=== PATIENT | female | born 1990 | race African-American/Black ===

== ENCOUNTER 2019-10-05 22:15 | Outpatient (CLI) | payer OTHER ==
[2019-10-05] MEDS ORDERED: FLUCONAZOLE 50MG TABLET PO ONE (23:00)
--- NOTE | 2019-10-05 23:03 | IPNPDOC ---
Text Note Date of Service The patient was seen on 10/05/19. NOTE Patient is 32wks with c/o discharge. Whitish not clumpy x3day. Sore in vagina and introitus. Hasn't tried anything. No bleeding. No loss of fluid. No contractions. Good movement. Exam: Introitus and vagina with erythema. White clumpy discharge c/w yeast. Nitrazine negative. FHT: Category 1, 150s, reactive, no decels, no contractions. Given diflucan 150mg PO x1. Fetus reassuring. Discharge home. Patricia Curran MD Oct 05, 2019 23:03
[2019-10-05 23:10] VITALS: BP 132/77
== END 2019-10-05 23:37 | disposition home or self-care (01) ==
LOC: M LDO 22:15
PROVIDERS: ATTEND Obstetrics & Gynecology
DX: O26.893 Other specified pregnancy related conditions, third trimester (principal); N89.8 Other specified noninflammatory disorders of vagina; Z3A.32 32 weeks gestation of pregnancy
CPT/HCPCS: 59025; G0378; G0463

== ENCOUNTER → 2019-10-20 | Outpatient (CLI) | payer OTHER ==
--- NOTE | 2019-10-20 12:23 | REP ---
Obstetric sonography: Limited study. History: Abnormal NST evaluate well-being. Findings: Scanning through the gravid uterus demonstrates a single living intrauterine gestation in a cephalic lie. Placenta is anterior grade 1 without evidence of previa or abruption. Closed cervical length could not be measured due to head position. Amniotic fluid is subjectively low normal. SANCHEZ is similarly in the lower end of the normal range at 9.4 cm (8.1-24.8 centimeters). SD ratio in the umbilical cord artery by Doppler is somewhat elevated at 3.70 (2.00-3.00). Biophysical profile is six out of a possible eight with zero scored for tone. Electronically Signed by Humberto De La Cruz MD 10/20/2019 12:15 P
== END ==
LOC: M RAD 11:02
PROVIDERS: ATTEND Obstetrics & Gynecology
DX: O36.8331 Maternal care for abnormalities of the fetal heart rate or rhythm, third trimester, fetus 1 (principal); Z3A.34 34 weeks gestation of pregnancy

== ENCOUNTER → 2019-10-27 | Outpatient (CLI) | payer OTHER ==
--- NOTE | 2019-10-27 20:09 | REP ---
Clinical: well-being. History of gestational diabetes. Comparison: 10/20/2019 . Findings: Examination demonstrates a single live intrauterine in cephalic presentation. motion is identified by technologist. Placenta is noted anterior and grade I I without evidence for placenta previa or abruption. Amniotic fluid volume is normal. Nuchal cord cannot be excluded. Gestational age by LMP 35 weeks 1 day with ADI 11/30/2019 . Gestational age by current measurements 33 weeks 4 days with ADI 12/11/2019 . FHR equals 152 beats per minute. Estimated weight 2229 grams ( 22nd percentile). Biophysical profile score: 8/8 Amniotic fluid index: 9.8 cm (7.9 - 24.9) Umbilical cord SD ratio: 3.79 (2.00 - 3.00) Impression: 1. Single live intrauterine in cephalic presentation demonstrating appropriate estimated weight. 2. Biophysical profile score and amniotic fluid volume are normal. 3. Umbilical cord SD ratio mildly elevated. 4. Nuchal cord cannot be excluded. Electronically Signed by Wilder Stacy MD 10/27/2019 08:00 P
== END ==
LOC: M RAD 12:57
PROVIDERS: ATTEND Obstetrics & Gynecology
DX: O24.419 Gestational diabetes mellitus in pregnancy, unspecified control (principal)

== ENCOUNTER → 2019-11-03 | Outpatient (CLI) | payer OTHER ==
--- NOTE | 2019-11-03 13:37 | REP ---
OB ULTRASOUND: Real-time sonographic evaluation of the gravid uterus is performed. There is a single living intrauterine gestation. Estimated gestational age is 36 weeks 1 day, EDC 11/30/2019. Today's measurements indicate appropriate growth. BPD 88 mm = 35 weeks 4 days, 42nd percentile HC 311 mm = 34 weeks 6 days, 31st percentile AC 314 mm = 35 weeks 3 days, 39th percentile Femur length 71 mm = 36 weeks 2 days, 53rd percentile HC/AC ratio 0.99 within normal range of 0.92-1.11. Estimated weight 2712 grams at the 42nd percentile. Cervix is closed and measures 4.0 cm in length. heart rate 157 beats per minute. Amniotic fluid subjectively appears to be lower limits of normal to mildly decreased. SANCHEZ is 7.4, normal range is 7.7-24.9. Biophysical profile score 8/8. S/D ratio 4.95 is above the normal range of 1.96-2.96. RI 0.80 is above normal range of 0.59-0.75. Visualized anatomy today includes four chamber heart, stomach, kidneys, and bladder which are all grossly unremarkable. position is vertex. Placenta is anterior and grade 2 with no previa or abruption. Electronically Signed by Sarath Alba MD 11/03/2019 04:56 P
== END ==
LOC: M RAD 12:14
PROVIDERS: ATTEND Obstetrics & Gynecology
DX: O24.913 Unspecified diabetes mellitus in pregnancy, third trimester (principal); Z3A.36 36 weeks gestation of pregnancy

== ENCOUNTER → 2019-11-10 | Outpatient (CLI) | payer OTHER ==
--- NOTE | 2019-11-10 14:37 | REP ---
OB ULTRASOUND AND BIOPHYSICAL PROFILE: Real-time sonographic evaluation of the gravid uterus performed. There is a single living intrauterine gestation. The estimated gestational age is 37 weeks 1 day, EDC 11/30/2019. heart rate 153 beats per minute. Amniotic fluid is within normal limits. SANCHEZ 11.8, normal range 7.5 to 24.4. Biophysical profile score 8/8. S/D ratio 4.81, normal range 1.6 to 2.6. RI 0.79, normal range 0.59 to 0.75. position is vertex. Placenta anterior and grade 3 with no previa or abruption. Electronically Signed by Sarath Alba MD 11/10/2019 03:11 P
--- NOTE | 2019-11-10 17:27 | HPE ---
DATE OF ADMISSION: 11/23/2019 This patient is a 29-year-old 4, para 1. Last menstrual period (LMP) is 02/08/2019, estimated date of confinement (EDC) 11/30/2019, booked for elective repeat section on 11/23/2019. Her past history: In 2011 had a spontaneous . In 2012 at term had a section for distress, 10 pounds 5 ounces, macrosomic infant. In 2015, spontaneous at 8 weeks. Her risk factors are she had a previous section for macrosomic in 2012. She is a class B diabetic, on metformin 500 mg daily. She has a body mass index (BMI) of 38.7. She is presently on aspirin 81 mg per day. She is GBS positive. Her lab values are she is O by mouth, HIV negative, hepatitis negative, RPR negative, rubella immune, Varicella nonimmune. Pap normal. Urine negative. Gonorrhea and chlamydia are negative. One-hour glucose initially was 157. Her 3-hour glucose fasting was 117, 1-hour is 163, 2-hour is 176, and 3-hour is 141. She was placed on metformin 500 mg daily. On examination today, symphysis fundus height is 38 cm, vertex presenting. heart sounds are prominent and normal. Category 1 strip. Her blood pressure is 136/78, respirations are 18, temperature is 98.2. She weighs 250.8 pounds. The rest of the examination is unremarkable. She is normocephalic, atraumatic. Neck: Full range of motion. Pupils equal and reactive to light. Distal pulses symmetric. No evidence of deep vein thrombosis (DVT), pulmonary embolism (PE), or superficial phlebitis. Chest is clear bilaterally to bases. No wheezes or rhonchi. No costovertebral angle (CVA) tenderness. Abdomen is soft. Four-quadrant bowel sounds are noted. Symphysis fundus height is appropriate. Incisional site is not painful, no hernias, and is dry. She has no rashes, lesions, or pruritus. No arthralgia, myalgia. No complaint of joint pain. No complaint cough, wheezes, shortness of breath, or dyspnea on exertion. Not bleeding. Neurologic complete. No incontinency, urgency, or frequency. No nausea, vomiting, diarrhea, or constipation. She is a class B diabetic. No heat or cold insensitivity. She had no abnormal Pap smears. No sexually transmitted diseases (STDs). PAST MEDICAL HISTORY: Unremarkable. SURGICAL HISTORY: Noncontributory. FAMILY HISTORY: Noncontributory. She does not smoke, drink, or abuse drugs. 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 No domestic violence. Presently taking vitamins, metformin 500 daily, and ASA 81 mg. ALLERGIES: IODINE, shellfish, and wasp venom. We discussed the risks and benefits of repeat section, including hemorrhage, infection, perforation, , reoperation, remote possibility of blood transfusion, remote possibility of hysterectomy for life-threatening bleeding situations. The risk of admission to the intensive care unit (NICU) because of her diabetes may be relevant, or if there are lacerations the baby may be admitted to the NICU. The patient expressed understanding of the same. All questions are answered. A 30-minute discussion. Consent form was signed. We are now awaiting the preoperative procedures.
== END ==
LOC: M RAD 12:54
PROVIDERS: ATTEND Obstetrics & Gynecology
DX: O24.415 Gestational diabetes mellitus in pregnancy, controlled by oral hypoglycemic drugs (principal); Z3A.34 34 weeks gestation of pregnancy

== ENCOUNTER 2019-11-14 10:44 | Inpatient (IN) | payer OTHER ==
[2019-11-14] VITALS (23 sets, daily range): BP systolic 89–168; BP diastolic 52–100
[~2019-11-14] VITALS: Ht 165.1 cm; Wt 113.0 kg
[2019-11-14] MEDS ORDERED: LR 1,000 ML IV SCH (11:00)
[2019-11-14] MEDS ORDERED: PENICILLIN G POTASSIUM IV 5 MU in D5W MINI-BAG PLUS 100 ML IV STA (11:02)
[2019-11-14] MEDS ORDERED: LACTATED RINGER'S 1000 ML IV STA (11:02)
--- NOTE | 2019-11-14 11:30 | HPEPDOC ---
Obstetrical History & Physical General Date of Admission Nov 14, 2019 at 10:58 History of Present Illness Cinthya is a 29yo with SIUP at 37w5d by lmp c/w 9wk u/s presenting to L&D with regular painful ctx since around 0100. No loss of fluid or vaginal bleeding. Has felt movement. No f/c/n/v/CP/SOB. Chief Complaint: Contractions, term Information Provided By: Patient Care Care: Good Care Dating Final EDC: Nov 30, 2019 Final EDC by: LMP, 1st trimester (US) Antepartum Course Diagnos(e)s Obesity (starting BMI 38.7), Class B diabetes on metformin prior to and continued during , prior section 07/2013 for arrest of dilation ( weight [id number]) at [facility] with 2 layer closure, varicella non- immune Height (inches): 66 Pre- weight (lbs.): 240 Admission Weight (lbs.): 250.8 Change in Weight (lbs.): 10.8 Past Medical History Past Obstetrical History : Past Obstetrical History: Multigravida (2012 PLTCS at 39wk for arrest of dilation ([id number]), 2011 sab, 2016 ETOP) 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 ABDOMEN: Gravid and non-tender to touch. FETUS: Is vertex (VTX) by sterile vaginal examination (SVE) EXTREMITIES: No edema of BLE Pertinent Laboratoy Data Blood Type: O+ RBC Antibody Screen: Negative HIV: Negative Hepatitis B: Negative Hepatitis C: Unknown Rapid Plasma Reagin: Nonreactive Rubella: Immune Varicella: Nonreactive Chlamydia/Gonorrhea: Negative Group B Streptococcus: Positive Glucose Tolerance Test: 157 (117/163/176/141) Anatomy Ultrasound Ultrasound Date: Jul 19, 2019 Placenta Location: Anterior Normal Anatomy: Yes Placenta Previa: No Other Ultrasounds 03 November 2019: growth scan 42%ile 2712g, vertex, BPP 8/8, SANCHEZ 7.4cm, placenta anterior grade 2 no previa Steroid Therapy Steroid Therapy: No Vaginal Examination Dilation: 6 cm Effacement: 80% Station: -2 Cervical Consistency: Soft Cervical Position: Middle Presentation: Cephalic presentation Assessment Heart Rate (FHR): 150 Variability: Moderate Accelerations: Positive Decelerations: Variable (non-repetitive, occasional) Tocometer Contractions: Yes Frequency: regular, every 2-5 min. Duration: greater than 60 seconds Strength: palpated as strong Assessment/Plan Assessment Cinthya is a 29yo with SIUP at 37w5d by lmp c/w 9wk u/s presenting in active labor with SCE 6/80/-2, intact. Ctx q3min. Cat II FHRT with mod james, +accels, occasional quick non-repetitive variable decels. Cephalic by SCE. Vitals wnl, benign exam. PMhx and PNC significant for: Obesity (starting BMI 38.7), Class B diabetes on metformin prior to and continued during with good control of glucose, history of PLTCS 07/2013 for arrest of dilation (infant weighed [id number]) at [facility] with 2 layer closure, varicella non-immune Plan Admit and orient. Counseled and consented- patient was scheduled for RLTCS on 22 November. Given that she is in active labor with SCE 6/80/-2, I discussed the option for her of repeat section or trial of labor after section. Discussed 1% risk of uterine rupture if she chooses TOLAC. At this point, she is amenable to TOLAC and would like to try since she has progressed so well in labor. She would like an epidural. Diet: NPO Group B Streptococcus (GBS) positive: PCN per protocol Labs and intravenous (IV) per unit protocol. Lactated Ringers (LR): Bolus 500 mL, then at 125 mL/hr. Anesthesia will be notified of TOLAC status and desire for epidural Safe to proceed MD Doug Salomon Katrina D MD Nov 14, 2019 11:30
[2019-11-14 11:32] LABS: BASO % 0.4 % (0.0-1.0); EOS # 0.1 10^3/uL (0.0-0.5); EOS % 0.9 % (0.0-3.0); HEMATOCRIT 37.7 % (36.0-47.0); HEMOGLOBIN 12.4 g/dl (12.0-15.5); LYMPH % 30.8 % (24.0-44.0); MEAN CORPUSCULAR HEMOGLOBIN 25.5 pg (27.0-33.0); MEAN CORPUSCULAR HGB CONC 32.9 g/dl (32.0-36.5); MEAN CORPUSCULAR VOLUME 77.6 fl (80.0-96.0); MONO # 0.8 10^3/uL (0.0-0.8); MONO % 7.7 % (0.0-5.0); NEUTROPHILS # 5.6 10^3/uL (1.5-8.5); NEUTROPHILS % 58.1 % (36.0-66.0); PLATELET COUNT, AUTOMATED 227 10^3/uL (150-450); RED BLOOD COUNT 4.86 10^6/uL (4.00-5.40); WHITE BLOOD COUNT 9.7 10^3/uL (4.0-10.0)
[2019-11-14] MEDS ORDERED: FLINCHW2 PO (11:32)
[2019-11-14] MEDS ORDERED: METF500T13 PO (11:32)
[2019-11-14] MEDS ORDERED: FENTANYL 2MCG/ML ROPIVACAINE 0.2% IN 0.9% NACL 100ML IVBAG As Ordered ONE (11:53)
[2019-11-14] MEDS ORDERED: ePHEDrine SULFATE 25 MG/5 ML(5MG/ML) SYRINGE As Ordered ONE (13:14)
[2019-11-14] MEDS ORDERED: ceFAZolin 2 GM/D5W 50 ML IV BAG (J0690 PER 500MG) As Ordered ONE (13:57)
[2019-11-14] MEDS ORDERED: AZITHROMYCIN INJ 500MG VIAL (J0456) As Ordered ONE (13:58)
[2019-11-14] MEDS ORDERED: LACTATED RINGER'S 1000 ML IV PRN (14:00)
[2019-11-14] MEDS ORDERED: FENTANYL/ROPIVACAINE/NACL BAG 100 ML EPIDURAL SCH (14:00)
[2019-11-14] MEDS ORDERED: EPIDURAL COMMENT XX SCH (14:00)
[2019-11-14] MEDS ORDERED: ceFAZolin SOD 2 GM in IV 1 EA IV ONE (14:00)
[2019-11-14] MEDS ORDERED: diphenhydrAMINE 50MG/ML VIAL (J1200) IV PRN ×2 (14:00→15:21)
[2019-11-14] MEDS ORDERED: REFRIGERATOR IV KEYS XX PRN (14:00)
[2019-11-14] MEDS ORDERED: EPIDURAL/PCA KEYS XX PRN (14:00)
[2019-11-14] MEDS ORDERED: ePHEDrine SULFATE 25 MG/5 ML(5MG/ML) SYRINGE IV PRN (14:00)
[2019-11-14] MEDS ORDERED: AZITHROMYCIN INJ 500 MG, VIAL MATE ADAPTER 1 EACH in D5W 250 ML IV ONE (14:00)
[2019-11-14] MEDS ORDERED: BICITRA 30ML SOLN UDC PO ONE (14:00)
[2019-11-14] MEDS ORDERED: ONDANSETRON 4MG/2ML VIAL (J2405) IV PRN ×2 (14:00→16:00)
[2019-11-14] MEDS ORDERED: NALOXONE INJ 0.4 MG/1 ML VIAL (J2310) IV PRN ×3 (14:00→15:21)
[2019-11-14] MEDS ORDERED: BICITRA 30ML SOLN UDC As Ordered ONE (14:03)
--- NOTE | 2019-11-14 14:10 | IPNPDOC ---
Text Note Date of Service The patient was seen on 11/14/19. NOTE Intrapartum Note, decision for Patient received epidural and started having deep/recurrent decels- bp was initially low, so she was given a dose of ephedrine, started on O2, fluid bolus 500cc LR and position change onto her side with improvement but not full resolution. I placed FSE after AROM, clear fluid noted, and continued to watch the tracing closely. After assessing that the decels were not fully resolving, and after repeat SCE showed continued 7/80/-2, I counseled Cinthya regarding persistent decels that my recommendation is for RLTCS. She is amenable. Epidural is working well. Consent forms signed for RLTCS and blood transfusion after fully discussing all r/b/a. All questions answered. Will give bicitra 2g IV anceph 500mg IV azithromycin NICU Dr and nursing team and anesthesia all aware Will proceed to OR as soon as possible Dr. Mary Camacho MD VS,Arvin, I+O VSArvin, I+O Laboratory Tests 11/14/19 11:21 Mary Camacho MD Nov 14, 2019 14:10
[2019-11-14] MEDS ORDERED: OXYTOCIN INJ 10 UNITS/ML VIAL (J2590) As Ordered ONE ×2 (14:37→15:08)
[2019-11-14] MEDS ORDERED: PHENYLephrine HCL 500 MCG/5 ML (100MCG/ML) SYRINGE (J2370) As Ordered ONE (14:37)
[2019-11-14] MEDS ORDERED: LIDOCAINE 2% W/EPIN INJ 20ML **PRES FREE As Ordered ONE (14:37)
[2019-11-14] MEDS ORDERED: dexameTHASONE 4 MG/ML 1ML VIAL (J1100 PER 1MG) As Ordered ONE (14:37)
[2019-11-14] MEDS ORDERED: ONDANSETRON 4MG/2ML VIAL (J2405) As Ordered ONE (14:37)
[2019-11-14 14:38] LABS: CORD GAS ABE A -12.4; CORD GAS HCO3 A 18.4 MEQ/L; CORD GAS O2 SAT A 19.3 %; CORD GAS PCO2 A 62.8 mmHg; CORD GAS PH A 7.085 UNITS; CORD GAS PO2 A 17.9 mmHg; CORD GAS SBC A 13.4 MEQ/L; CORD GAS TCO2 A 20.3 MEQ/L
[2019-11-14 14:39] LABS: CORD GAS HCO3 V 16.3 MEQ/L; CORD GAS PCO2 V 41.2 mmHg; CORD GAS PH V 7.214 UNITS; CORD GAS PO2 V 47.9 mmHg; CORD GAS SBC V 15.7 MEQ/L; CORD GAS TCO2 V 17.5 MEQ/L
[2019-11-14] MEDS ORDERED: MORPHINE PRES-FREE INJ 10 MG/10 ML VIAL (J2274) As Ordered ONE (14:53)
[2019-11-14] MEDS ORDERED: KETOROLAC 60 MG/2 ML VIAL (J1885) As Ordered ONE (14:55)
[2019-11-14] MEDS ORDERED: PENICILLIN G POTASSIUM IV 2.5 MU in IV 1 EA IV SCH (15:00)
[2019-11-14] MEDS ORDERED: NALBUPHINE HCL 10 MG/ML AMP (J2300) IV PRN (15:21)
[2019-11-14] MEDS ORDERED: OXYTOCIN 30 UNITS IN 0.9% NaCl 500ML IV BAG (J2590) As Ordered ONE (15:28)
--- NOTE | 2019-11-14 15:35 | DNPDOC ---
[facility] Delivery Note Delivery Note DATE OF DELIVERY: 11/14/2019 PREDELIVERY DIAGNOSIS: 37w5d gestation and labor, history of prior section POST DELIVERY DIAGNOSIS: 37w5d gestation and labor, history of prior section NRFHT when attempting TOLAC PROCEDURE: RLTCS FLUTE TEACHER: Dr. Mary Camacho MD Assist: Dr. Patricia Curran MD ANESTHESIA: epidural ESTIMATED BLOOD LOSS: 600 mL. FINDINGS: 6 pound 1 ounce (2760g) male infant, Score 8/9 DELIVERY SUMMARY: Cinthya is a 29yo [id number] s/p uncomplicated RLTCS at 14:26 on 11/14/2019 when she presented to L&D in active labor at 37w5d and developed a NRFHT with recurrent late/variable decels when attempting TOLAC. See dictated op report for further details. MD Doug Salomon Katrina D MD Nov 14, 2019 15:35
[2019-11-14] MEDS: LR 1,000 ML IV SCH ×2 (15:36→23:39)
[2019-11-14] MEDS ORDERED: OXYTOCIN DRIP 30 UNITS in IV 1 EA IV SCH (15:36)
[2019-11-14] MEDS ORDERED: RHOGAM 300 MCG (1500 IU) INJ (J2790) IM SCH (15:45)
[2019-11-14] MEDS ORDERED: MEASLES,MUMPS,RUBELLA VACCINE INJ (MMR-II) (90707) SC SCH (15:45)
[2019-11-14] MEDS ORDERED: PERCOCET 5MG/325MG TAB PO PRN (15:45)
[2019-11-14] MEDS ORDERED: fentaNYL 100 MCG/2 ML INJECTION (J3010) As Ordered ONE (15:51)
[2019-11-14] MEDS: fentaNYL 100 MCG/2 ML INJECTION (J3010) IV PRN ×2 (15:55→16:11)
[2019-11-14] MEDS: METOCLOPRAMIDE INJ 10MG/2ML VIAL (J2765) IV PRN (19:32)
--- NOTE | 2019-11-14 19:33 | RO ---
DATE OF PROCEDURE: 11/14/2019 SURGEON: Mary Camacho SILK SCREEN PROCESSOR: Dr. Patricia Curran CLINICAL SERVICE: Obstetrics INDICATIONS FOR OPERATION: Cinthya is a 29-year-old 4, now para 2-0-2-2 who presented to labor and delivery at 37 weeks 5 days in active labor with cervical assessment 6, 80, -2. She has a history of a prior section that was performed in 2012 for a nonreassuring heart rate tracing that developed in the setting of likely arrest of dilation. That the infant weighed 10 pounds 5 ounces. She had been counseled previously regarding her options of repeat low transverse section versus a trial of labor after , and she had a planned repeat low transverse section scheduled for the with Dr. Stafford. When she presented in active labor, given her advanced dilation, I offered her the option of either having a section or a trial of labor, and she elected for a trial of labor. She received an epidural and immediately after started to have some deep recurrent heart rate decelerations. Resuscitative measures were employed. She did have some low blood pressure, which was corrected with ephrine, but she continued to have recurrent heart rate decelerations, so I counseled her for my recommendation of repeat low transverse section, which she was amendable to at that point. PREOPERATIVE DIAGNOSES: 1. Kohli intrauterine at 37 weeks 5 day in active labor. 2. History of prior section. 3. Class B diabetes. POSTOPERATIVE DIAGNOSES: 1. Kohli intrauterine at 37 weeks 5 day in active labor. 2. History of prior section. 3. Class B diabetes. 4. In addition, nonreassuring heart rate tracing during a trial of labor, necessitating section for delivery. MATERIAL FORWARDED TO THE LAB FOR EXAMINATION: Cord gases, pH arterial 7.085, base excess negative 12.4, pH venous 7.214, base excess negative 11. DESCRIPTION OF FINDINGS: Male in occiput transverse (OT) position. scores 8 and 9. Weight 2760 grams or 6 pounds 1 ounce. Normal appearing uterus, fallopian tubes and appendix. The uterus was repaired in situ. She had dense scarring in the subcutaneous layers from prior section. INFECTION CLASSIFICATION: II. ESTIMATED BLOOD LOSS: 600 mL. URINE OUTPUT: 100 mL of clear yellow urine. FLUIDS: 2 liters of lactated Ringer's. OPERATION PERFORMED: Repeat low transverse section. DESCRIPTION OF PROCEDURE: The patient was taken to the operating room. She had already received epidural anesthesia and a Espino catheter and bilateral sequential compression devices were in place. She was prepped and draped in a normal sterile fashion in the dorsal supine position with a left lateral tilt. She has an ALLERGY TO BETADINE, so Chloraprep was used. Time-out was performed to confirm patient name, date of , procedure and indication. Surgical team, nursing staff and anesthesia team were all in agreement, and epidural anesthesia was found to be adequate using an Allis clamp. She was given 2 grams of IV Ancef prophylactically as well as 500 mg of IV azithromycin for preoperative prophylaxis. She had also been receiving penicillin in labor for GBS positive status. A Pfannenstiel skin incision was made with a scalpel through the prior scar line and carried through to the underlying layer of fascia. Fascia was incised in the midline, and the incision was extended laterally with Morales scissors. Superior and inferior aspects of the fascial incision were grasped with Mert clamps, elevated and the underlying rectus muscles were dissected off bluntly and sharply. Peritoneum was entered digitally and the rectus muscles were in the midline. Peritoneal incision was extended superiorly and inferiorly with good visualization of the bladder. Bladder blade was inserted and the vesicouterine peritoneum was identified, grasped with pickups and entered sharply with Metzenbaum scissors. Incision was extended laterally and a bladder flap was created digitally. Bladder blade was reinserted and the lower uterine segment was scored in a transverse fashion with a scalpel. Uterus was entered bluntly, and the incision was extended with traction with clear amniotic fluid noted. Bladder blade was removed, and the 's head was elevated to the level of the incision. Fundal pressure was applied. The head was delivered atraumatically in the occupational therapy (OT) position. Anterior shoulder, posterior shoulder and corpus were delivered without difficulty. Nose and mouth were suctioned with bulb suction. Cord was clamped times two and cut. The infant was handed off to the awaiting pediatric team. Cord gases were obtained and as noted above. Placenta was removed manually, and the uterus was left in place to be repaired in situ. It was cleared of all clot and debris. The uterine incision was repaired with #0 Vicryl suture in a running locking fashion. A second layer of #0 Monocryl was used to close the hysterotomy incision in imbricating fashion. Uterine incision was inspected and hemostasis was noted. Gutters were cleared of all clot and irrigated with hemostasis noted. Peritoneum was closed using #3-0 Vicryl suture in a running fashion. Rectus muscles were reapproximated with [id number] stitches using #3-0 Vicryl suture. Fascia was reapproximated with #0 Vicryl suture in a running fashion. Subcutaneous tissue was copiously irrigated. Yahaira fascia was reapproximated using #3-0 Vicryl suture in a running fashion, and the skin was closed using a running subcuticular stitch with #4-0 Monocryl suture. The incision was cleaned with a wet lap, dried with a dry lap. Steri-Strips were applied in the usual fashion. Two strips of Telfa were layered on top of the Steri-Strips followed by a dry sterile towel. The surgical drapes were removed. Sterile towel was removed. Pressure dressing was applied over the entire surgical incision. The vagina was cleared of all blood clot without active bleeding noted. Fundus was firm at the umbilicus. All counts were correct times two. The procedure was without complications, and the patient tolerated the procedure well. She was taken to the recovery room on labor and delivery in stable condition.
[2019-11-14] MEDS: DOCUSATE SODIUM 100 MG CAP PO SCH (20:38)
[2019-11-14] MEDS: KETOROLAC 30 MG/ML VIAL (J1885) IV SCH (20:55)
[2019-11-15] MEDS: ONDANSETRON 4MG/2ML VIAL (J2405) IV PRN ×2 (00:54→08:45)
[2019-11-15 02:00] VITALS: BP 122/66
[2019-11-15] MEDS: KETOROLAC 30 MG/ML VIAL (J1885) IV SCH ×2 (03:46→08:45)
[2019-11-15] MEDS: METOCLOPRAMIDE INJ 10MG/2ML VIAL (J2765) IV PRN (03:46)
[2019-11-15] MEDS: LR 1,000 ML IV SCH (05:47)
[2019-11-15 06:00] VITALS: BP 123/63
[2019-11-15 06:51] LABS: HEMATOCRIT 30.6 % (36.0-47.0); MEAN CORPUSCULAR HGB CONC 32.7 g/dl (32.0-36.5); MEAN CORPUSCULAR VOLUME 79.5 fl (80.0-96.0); PLATELET COUNT, AUTOMATED 194 10^3/uL (150-450); RED BLOOD COUNT 3.85 10^6/uL (4.00-5.40); WHITE BLOOD COUNT 22.4 10^3/uL (4.0-10.0)
[2019-11-15] MEDS: DOCUSATE SODIUM 100 MG CAP PO SCH ×2 (08:44→21:40)
[2019-11-15] MEDS: PRENATAL VITAMINS CHEWABLE TABLET PO SCH (08:44)
--- NOTE | 2019-11-15 09:54 | IPNPDOC ---
Progress Note Date of Service: Nov 15, 2019 Day#: 1 Progress Note PPD/POD 1 SUBJECT: Cinthya is a 29yo [id number] s/p uncomplicated RLTCS at 14:26 on 11/14/2019 when she presented to L&D in active labor at 37w5d and developed a NRFHT with recurrent late/variable decels when attempting TOLAC, doing well /post-op day #1. She has been ambulating, has albarran in place draining clear yellow urine. Tolerated breakfast well though had vomiting last night treated with zofran. Breast feeding without issue, but baby is in NICU for glucose. Reports lochia is modest. No f/c/n/v/CP/SOB. Pain well controlled with toradol/percocet. OBJECTIVE: VITAL SIGNS: Within normal limits, afebrile. Alert and oriented times three. Abdomen: Fundus firm at U-2. Soft, appropriately tender to palpation. Dressing over pfannensteil incision is clean/dry/intact Extremities: SCDs on and functioning, no pain with palpation of calves ASSESSMENT: Cinthya is a 29yo [id number] s/p uncomplicated RLTCS at 14:26 on 11/14/2019 when she presented to L&D in active labor at 37w5d and developed a NRFHT with recurrent late/variable decels when attempting TOLAC, doing well /post-op day #1. Vitals within normal limits, afebrile, hemodynamically stable with no evidence of infection. PLAN: 1. Routine /post-op care 2. Toradol and percocet then Motrin and percocet for pain. 3. Encourage breast feeding and ambulation to NICU 4. Regular diet 5. Remove albarran this morning with 4 hour due to void 6. Ok to remove outer bandage and shower this afternoon, keep steri strips in place to remove in 1 week 7. Possible discharge home tomorrow if meeting all milestones, patient knows to go to [facility] on the way home to hop picker post-op meds Dr. Mary Camacho MD VS, I&O, 24H, Fishbone Vital Signs/I&O Vital Signs Date Time Temp Pulse Resp B/P (MAP) Pulse Ox O2 Delivery O2 Flow Rate FiO2 11/15/19 06:00 98.2 84 20 123/63 (83) 97 Room Air I&O- Last 24 Hours up to 6 AM 11/15/19 05:59 Intake Total 3927 ml Output Total 2550 ml Balance 1377 ml Laboratory Data 24H LABS Laboratory Tests 2 11/14/19 11:21: Immature Granulocyte % (Auto) 2.1, Neutrophils (%) (Auto) 58.1, Lymphocytes (%) (Auto) 30.8, Monocytes (%) (Auto) 7.7H, Eosinophils (%) (Auto) 0.9, Basophils (%) (Auto) 0.4, Neutrophils # (Auto) 5.6, Lymphocytes # (Auto) 3.0, Monocytes # (Auto) 0.8, Eosinophils # (Auto) 0.1, Basophils # (Auto) 0.0, Nucleated Red Blood Cells % (auto) 0.0, Syphilis Serology NONREACTIVE 11/14/19 11:41: Serology Scanned Report Hepatitis B Testing 11/14/19 14:32: Cord Arterial Blood pH 7.085, Cord Arterial Blood PCO2 62.8, Cord Arterial Blood PO2 17.9, Cord Arterial Blood HCO3 18.4, Cord Arterial Blood Total CO2 20.3, Cord Arterial Blood Base Excess -12.4, Cord Arterial Base Excess (Standard 13.4, Cord Arterial Bld Oxygen Saturation 19.3, Cord Venous Blood pH 7.214, Cord Venous Blood PCO2 41.2, Cord Venous Blood PO2 47.9, Cord Venous Blood HCO3 16.3, Cord Venous Blood Total CO2 17.5, Cord Venous Base Excess (Actual) -11.0, Cord Venous Base Excess (Standard) 15.7, Cord Venous Blood Oxygen Saturation 84.0 11/15/19 06:32: Nucleated Red Blood Cells % (auto) 0.0 CBC/BMP Laboratory Tests 11/14/19 11:21 11/15/19 06:32 Mary Camacho MD Nov 15, 2019 09:54
[2019-11-15 10:00] VITALS: BP 130/63
--- NOTE | 2019-11-15 11:44 | IPN ---
DATE: 11/15/2019 This patient and her requested circumcision of their male . After discussing risks and benefits of circumcision, the medical and nonmedical indications, penile block, aftercare and bleeding, signed the consent form. All questions were answered. 20-minute discussion. We await the clearance by the bouffant curtain machine tender.
[2019-11-15] MEDS ORDERED: IBUP80TA PO (12:23)
[2019-11-15] MEDS ORDERED: PERCOCET PO (12:23)
[2019-11-15] MEDS ORDERED: DOCU100C16 PO (12:23)
[2019-11-15] MEDS: PERCOCET 5MG/325MG TAB PO PRN ×2 (15:06→22:21)
[2019-11-15 18:00] VITALS: BP 136/58
[2019-11-15] MEDS: IBUPROFEN 800 MG TAB PO SCH (18:10)
[2019-11-15 22:00] VITALS: BP 119/67
[2019-11-16] MEDS: IBUPROFEN 800 MG TAB PO SCH ×3 (01:34→16:53)
[2019-11-16 02:00] VITALS: BP 119/61
[2019-11-16 06:00] VITALS: BP 133/74
[2019-11-16] MEDS ORDERED: ONDANSETRON 4 MG ORAL DISINTEGRATING TAB (Q0162 PER 1MG) PO PRN (07:45)
--- NOTE | 2019-11-16 07:45 | IPNPDOC ---
Progress Note Date of Service: Nov 16, 2019 Day#: 2 Progress Note SUBJECT: Patient is a 29-year-old 2 now Para 2 status post uncomplicated Repeat delivery after failed TOLAC, doing well day # 2. She has been ambulating, voiding spontaneously without issue and tolerating regular diet. However, she has bouts of nausea and vomitting at night which then create significant muscular abdominal pain. Pumping without issue. Reports lochia is like a normal period. Patient is ambulating well. Reports some cramping with pumping. Has some pain in addition to the above. OBJECTIVE: VITAL SIGNS: Within normal limits, afebrile. GENERAL: No acute distress HEENT: Mucous membranes are moist BREAST: Nontender, no erythema CARDIOVASCULAR: RRR RESPIRATORY: Bilaterally clear ABDOMINAL EXAMINATION: Soft, appropriate tenderness, nondistended, fundus -2 WOUND: clean and dry and intact PERINEUM: Intact, minimal lochia EXTREMITIES: no edema, nontender ASSESSMENT: Patient is a 29-year-old 2 now Para 2 status post uncomplicated Repeat delivery after failed TOLAC, doing well day # 2. Vitals within normal limits, afebrile, hemodynamically stable with no evidence of infection. PLAN: 1. Continue care. 2. Tylenol and Percocet for pain. 3. Encourage continued pumping and ambulation. 4. Reglan OTC and Zofran PRN for N/V. VS, I&O, 24H, Fishbone Vital Signs/I&O Vital Signs Date Time Temp Pulse Resp B/P (MAP) Pulse Ox O2 Delivery O2 Flow Rate FiO2 11/15/19 10:00 98.6 82 18 130/63 (85) 98 Room Air I&O- Last 24 Hours up to 6 AM0 11/15/19 05:59 Intake Total 3927 ml Output Total 2550 ml Balance 1377 ml Laboratory Data 24H LABS Laboratory Tests 2 11/14/19 14:32: Cord Arterial Blood pH 7.085, Cord Arterial Blood PCO2 62.8, Cord Arterial Blood PO2 17.9, Cord Arterial Blood HCO3 18.4, Cord Arterial Blood Total CO2 20.3, Cord Arterial Blood Base Excess -12.4, Cord Arterial Base Excess (Standard 13.4, Cord Arterial Bld Oxygen Saturation 19.3, Cord Venous Blood pH 7.214, Cord Venous Blood PCO2 41.2, Cord Venous Blood PO2 47.9, Cord Venous Blood HCO3 16.3, Cord Venous Blood Total CO2 17.5, Cord Venous Base Excess (Actual) -11.0, Cord Venous Base Excess (Standard) 15.7, Cord Venous Blood Oxygen Saturation 84.0 11/15/19 06:32: Nucleated Red Blood Cells % (auto) 0.0 CBC/BMP Laboratory Tests 11/15/19 06:32 Patricia Curran MD Nov 15, 2019 12:18
[2019-11-16] MEDS: DOCUSATE SODIUM 100 MG CAP PO SCH ×2 (09:17→21:11)
[2019-11-16] MEDS: PRENATAL VITAMINS CHEWABLE TABLET PO SCH (09:17)
[2019-11-16] MEDS: METOCLOPRAMIDE 10 MG TAB PO SCH ×3 (09:17→18:00)
[2019-11-16] MEDS: PERCOCET 5MG/325MG TAB PO PRN ×2 (14:42→21:11)
[2019-11-16 18:00] VITALS: BP 129/61
[2019-11-16] MEDS ORDERED: SIMETHICONE 80 MG CHEW TAB PO PRN (21:30)
[2019-11-17] MEDS: IBUPROFEN 800 MG TAB PO SCH ×2 (00:04→08:40)
[2019-11-17] MEDS: METOCLOPRAMIDE 10 MG TAB PO SCH ×2 (00:04→05:39)
[2019-11-17 05:30] VITALS: BP_SYST 114; BP_SYST 136; BP_DIAS 62; BP_DIAS 69
[2019-11-17] MEDS: PERCOCET 5MG/325MG TAB PO PRN ×2 (05:40→12:17)
[2019-11-17] MEDS: PRENATAL VITAMINS CHEWABLE TABLET PO SCH (08:39)
[2019-11-17] MEDS: DOCUSATE SODIUM 100 MG CAP PO SCH (08:39)
--- NOTE | 2019-11-17 08:46 | IPNPDOC ---
Progress Note Date of Service: Nov 17, 2019 Day#: 3 Progress Note Subject: Patient is a 29-year-old 2 now Para 2 status post uncomplicated Repeat delivery after failed TOLAC #3. She has been ambulating, voiding spontaneously without issue and tolerating regular diet. Having regular BM. Pumping without issue. Reports lochia is like a normal period. Reports having difficulty walking at times with incisional pain. OBJECTIVE: VITAL SIGNS: Within normal limits, afebrile. GENERAL: No acute distress ABDOMINAL EXAMINATION: Soft, appropriate tenderness, nondistended, fundus -2 WOUND: clean and dry and intact EXTREMITIES: no edema, nontender, no erythema A/P patient is a 29 yo pod #3, clinically doing well. discussed s/s to call or go to ED as appropriate. encourage BF/breast pump. d/c home today. DO Madhuri VS, I&O, 24H, Fishbone Vital Signs/I&O Vital Signs Date Time Temp Pulse Resp B/P (MAP) Pulse Ox O2 Delivery O2 Flow Rate FiO2 11/17/19 06:10 16 11/17/19 05:30 98.0 89 136/69 (91) 100 Room Air JULIANA RICO DO Nov 17, 2019 08:46
--- NOTE | 2019-11-17 08:50 | DS.PDOC ---
Discharge Summary General Date of Admission Nov 14, 2019 at 10:58 Date of Discharge 11/17/2019 Discharge Summary PROCEDURES PERFORMED DURING STAY: RLTCS. ADMITTING DIAGNOSES: 1. Term 2. Active Labor 3. History of prior section 4. NRFHT DISCHARGE DIAGNOSES: 1. Post 2. 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 HISTORY OF PRESENT ILLNESS: see H&P HOSPITAL COURSE: Patient was admitted for active labor and had an uncomplicated section for failed TOLAC due to NRFHT. Bleeding similar to menses. Tolerating diet. Passing flatus. Able to ambulate. Pain tolerable with pain medications. Urinating without difficulty. DISCHARGE MEDICATIONS: Please see below. ALLERGIES: Please see below. PHYSICAL EXAMINATION ON DISCHARGE: VITAL SIGNS: Please see below. GENERAL: No acute distress HEENT: Mucous membranes moist ABDOMINAL EXAMINATION: Soft, appropriate tenderness, nondistended, fundus -2 WOUND clean and intact EXTREMITIES: no edema, nontender, no erythema LABORATORY DATA: Please see below. PROGNOSIS: Good ACTIVITY: Pelvic rest, no heavy lifting for 4-6wks. DIET: Regular DISCHARGE PLAN: Home DISPOSITION: Good. DISCHARGE INSTRUCTIONS: 1. See attached. ITEMS TO FOLLOWUP ON ON OUTPATIENT: 1. 2wks with [facility]. DISCHARGE CONDITION: Stable. TIME SPENT ON DISCHARGE: Greater than 20 minutes. Vital Signs/I&Os Vital Signs Date Time Temp Pulse Resp B/P (MAP) Pulse Ox O2 Delivery O2 Flow Rate FiO2 11/15/19 10:00 98.6 82 18 130/63 (85) 98 Room Air I&O- Last 24 Hours up to 6 AM 11/15/19 05:59 Intake Total 3927 ml Output Total 2550 ml Balance 1377 ml Laboratory Data Labs 24H Laboratory Tests 2 11/14/19 14:32: Cord Arterial Blood pH 7.085, Cord Arterial Blood PCO2 62.8, Cord Arterial Blood PO2 17.9, Cord Arterial Blood HCO3 18.4, Cord Arterial Blood Total CO2 20.3, Cord Arterial Blood Base Excess -12.4, Cord Arterial Base Excess (Standard 13.4, Cord Arterial Bld Oxygen Saturation 19.3, Cord Venous Blood pH 7.214, Cord Venous Blood PCO2 41.2, Cord Venous Blood PO2 47.9, Cord Venous Blood HCO3 16.3, Cord Venous Blood Total CO2 17.5, Cord Venous Base Excess (Actual) -11.0, Cord Venous Base Excess (Standard) 15.7, Cord Venous Blood Oxygen Saturation 84.0 11/15/19 06:32: Nucleated Red Blood Cells % (auto) 0.0 CBC/BMP Laboratory Tests 11/15/19 06:32 Discharge Medications Scheduled Docusate Sodium (Docusate Sodium) 100 Mg Capsule, 100 MG PO BID Ibuprofen (Ibuprofen) 800 Mg Tablet, 800 MG PO Q8H Metformin HCl (Metformin HCl) 500 Mg Tablet, 500 MG PO BID, (Reported) Scheduled PRN Oxycodone/Acetaminophen (Oxycodone-Acetaminophen 5-325) 1 Each Tablet, 1 TAB PO Q4H PRN for MILD/MODERATE PAIN (PS 1-7) Miscellaneous Medications Multivitamin (Flintstones) 1 Each Tab.chew, 1 CHW PO, (Reported) Allergies Coded Allergies: Iodine and Iodide Containing Produc (Verified Allergy, Severe, anaphylaxis, 11/14/19) Paper Wasp (Verified Allergy, Severe, WASP VENOM ANAPHYLAXIS, 11/14/19) shellfish derived (Verified Allergy, Severe, anaphylaxis, 11/14/19) Patricia Curran MD Nov 15, 2019 12:22 JULIANA RICO DO Nov 17, 2019 08:50
== END 2019-11-17 12:45 | disposition home or self-care (01) | DRG 773 ==
LOC: M LDO 10:44 → M LDI 10:58 → M OBS 18:04
PROVIDERS: ADMIT Obstetrics & Gynecology; ATTEND Obstetrics & Gynecology
PROC: 10D00Z1 Extraction of Products of Conception, Low, Open Approach (ICD-10-PCS; principal; 2019-11-14 14:08)
DX: O24.32 Unspecified pre-existing diabetes mellitus in childbirth (principal); O34.211 Maternal care for low transverse scar from previous cesarean delivery; Z37.0 Single live birth; Z3A.37 37 weeks gestation of pregnancy; E66.9 Obesity, unspecified; O99.214 Obesity complicating childbirth; Z68.38 Body mass index [BMI] 38.0-38.9, adult; E11.9 Type 2 diabetes mellitus without complications; O76 Abnormality in fetal heart rate and rhythm complicating labor and delivery; Z88.8 Allergy status to other drugs, medicaments and biological substances

== ENCOUNTER → 2019-11-30 | Outpatient (CLI) | payer OTHER ==
[~2019-11-30] MED LIST: DOCU100C16 PO; FLINCHW2 PO; IBUP80TA PO; METF500T13 PO; PERCOCET PO
--- NOTE | 2019-11-30 14:32 | REP ---
LIMITED PELVIC ULTRASOUND: Real-time sonographic evaluation of the pelvis is performed in the region of pain, in this patient who is 2 weeks postoperative for a section. At the site of pain, anterior to the superior aspect of the uterus, is a complex area of fluid. This measures 4.1 x 3.4 x 4.5 cm. Differential diagnosis would include hematoma or abscess. Electronically Signed by Sarath Alba MD 11/30/2019 04:23 P
== END ==
LOC: M RAD 12:53
PROVIDERS: ATTEND Obstetrics & Gynecology
DX: O99.355 Diseases of the nervous system complicating the puerperium (principal); G89.18 Other acute postprocedural pain

== ENCOUNTER → 2019-12-08 | Outpatient (CLI) | payer OTHER ==
[~2019-12-08] MED LIST changes: +READI-CAT 2 As Ordered ONE
--- NOTE | 2019-12-08 15:34 | REP ---
CT ABDOMEN AND PELVIS WITH ORAL CONTRAST: CT abdomen and pelvis performed with oral contrast. No IV contrast was administered. Sagittal and coronal reconstruction images are performed. Visualized lung bases are clear. The liver and gallbladder are grossly unremarkable. Spleen, adrenal and pancreas are grossly unremarkable. Kidneys demonstrate no hydronephrosis or nephrolithiasis. Abdominal aorta is normal in caliber. No adenopathy is seen. There is no free air or free fluid. No bowel wall thickening is seen. Prominent uterus is noted, patient recently had section 3 weeks ago. No pelvic mass is seen. Urinary bladder is mildly distended and grossly unremarkable. In the anterior abdominal wall, in the lower aspect of the rectus muscle, there is focal fluid density approximately 3.5 cm in diameter. This may represent hematoma or seroma. Abscess is not excluded although there is no internal air. There is scattered edema in the more superficial soft tissues of the lower abdomen. IMPRESSION: At the level of the uterus, in the rectus muscle inferior aspect, there is focal fluid density 3.5 cm in diameter probably representing hematoma/seroma. Abscess cannot be excluded, although there is no internal air within the fluid. Electronically Signed by Sarath Alba MD 12/08/2019 07:03 P
== END ==
LOC: M RAD 12:10
PROVIDERS: ATTEND Obstetrics & Gynecology
DX: L76.32 Postprocedural hematoma of skin and subcutaneous tissue following other procedure (principal)